=== PATIENT | female | born 1965 | race African-American/Black ===

== ENCOUNTER 2024-01-01 13:19 | Emergency (ER) | payer MEDICAID ==
[~2024-01-01] VITALS: Ht 180.3 cm; Wt 81.6 kg
[2024-01-01 13:43] VITALS: BP 138/88; PULSE 68; RESP 16; TEMP 98; O2SAT 99
[2024-01-01] MEDS ORDERED: NEOM10DR11 RIGHT EAR (16:08)
== END 2024-01-01 16:45 | disposition home or self-care (01) ==
LOC: ER 13:19
DX: T16.2XXA Foreign body in left ear, initial encounter (principal); W44.9XXA Unspecified foreign body entering into or through a natural orifice, initial encounter; Y93.89 Activity, other specified; Y92.89 Other specified places as the place of occurrence of the external cause; Y99.8 Other external cause status
CPT/HCPCS: 69200; 99284; Z7610; 99283